=== PATIENT | female | born 1980 | race Caucasian/White ===

== ENCOUNTER 2016-08-28 12:12 | Emergency (ER) | payer OTHER ==
[2016-08-28 12:19] VITALS: BMI 21.6
[2016-08-28] MEDS ORDERED: SODIUM CHLORIDE 0.9% 1000 ML INFUS.BAG IV STA (12:24)
[2016-08-28] MEDS ORDERED: ACETAMINOPHEN 1000 MG/100 ML VIAL (NON FORMULARY) IVPB ONE (12:25)
[2016-08-28] MEDS ORDERED: ACETAMINOPHEN INJECTION 100 ML IVPB ONE (12:31)
--- NOTE | 2016-08-28 12:41 | PDOC ---
History of Present Illness - General Chief Complaint: Syncope/Near Syncope Stated Complaint: ABDOMINAL PAIN/FEVER/FAINTING/DIZZINESS Time Seen by Provider: 08/28/16 12:21 History Source: Patient Exam Limitations: No Limitations - History of Present Illness Initial Comments: 08/28/16 12:50 This is an otherwise healthy 36-year-old female who presents emergency department with a complaint of abdominal pain, fever, syncope. Patient states she was in her usual state of health until yesterday at approximately 7 PM when she noted lower abdominal pain, chills. Throughout the evening when she attempted to go to the bathroom she felt very lightheaded, dizzy, and blood syncopized. Patient has had nausea, no vomiting. Patient denies diarrhea. Patient denies recent travel. Patient states last night her temperature was 102. Patient states that her children have runny noses and a cough, otherwise has had no exposure to ill patients. Patient has had 2 C-sections, states she's had no other abdominal surgery. PT denies vaginal discharge Sexually active with only 08/28/16 13:09 MH: Denies PSH: C section x 2 Medication: Denies NKDA Social: denies alcohol drug cigarette use GENERAL/CONSTITUTIONAL: Yes: fever, chills, weakness, loss of appetite. HEAD, EYES, EARS, NOSE AND THROAT: No: change in vision, ear pain, discharge, sore throat, throat swelling. CARDIOVASCULAR: No: chest pain, lightheadedness, palpitations, syncope RESPIRATORY: No: cough, shortness of breath, wheezing, hemoptysis, stridor. GASTROINTESTINAL: Yes: nausea, abdominal pain No: vomiting, diarrhea GENITOURINARY: No: dysuria, hematuria, frequency, urgency, flank pain. MUSCULOSKELETAL: No: back pain, neck pain, joint pain, muscle swelling or pain SKIN AND BREASTS: No: lesions, pallor, rash or easy bruising. NEUROLOGIC: No: headache, vertigo, paresthesias, weakness ENDOCRINE: No: unexplained weight gain or loss HEMATOLOGIC/LYMPHATIC: No: anemia, easy bleeding, swelling nodes. Selected Entries 08/28/16 12:14 Temperature 103 F H Pulse Rate 102 H Respiratory 18 Rate Blood Pressure 86/56 O2 Sat by Pulse 100 Oximetry (%) GENERAL: The patient is in no acute distress, pt appears weak. HEAD: Normal with no signs of trauma. EYES: PERRLA, EOMI, sclera anicteric, conjunctiva clear. ENT: Ears normal, nares patent, oropharynx clear without exudates. Moist mucous membranes. NECK: Normal range of motion, supple without lymphadenopathy, JVD, or masses. LUNGS: Breath sounds equal, clear to auscultation bilaterally. No wheezes, and no crackles. HEART: Tachycardiac, Regular rhythm ABDOMEN: Soft, mild distention, diffuse lower abdominal tenderness to palpation , (+) voluntary guarding, no rebound tenderness LLQ, Suprapubic, RLQ tenderness to palpation EXTREMITIES: Normal range of motion, no edema. No clubbing or cyanosis. No erythema, or tenderness. NEUROLOGICAL: Cranial nerves II through XII grossly intact. Normal speech. No focal neurological deficits. MUSCULOSKELETAL: Back non-tender to palpation, no CVA tenderness SKIN: Warm, Dry, normal turgor, no rashes or lesions noted. 08/28/16 13:11 08/28/16 13:12 08/28/16 13:16 Past History - Past Medical History Allergies/Adverse Reactions: Allergies Allergy/AdvReac Type Severity Reaction Status Date / Time No Known Allergies Allergy Verified 08/28/16 12:15 Home Medications: Ambulatory Orders NK [No Known Home Medication] 08/28/16 Other medical history: PT DENIES - Psycho/Social/Smoking Cessation Hx Suicidal Ideation: No Smoking History: Never smoked Information on smoking cessation initiated: No *Physical Exam - Vital Signs Last Vital Signs Temp Pulse Resp BP Pulse Ox 103 F H 102 H 18 86/56 100 08/28/16 12:14 08/28/16 12:14 08/28/16 12:14 08/28/16 12:35 08/28/16 12:14 ED Treatment Course - LABORATORY CBC & Chemistry Diagram: 08/28/16 12:40 08/28/16 12:40 - Medications Given in the ED: ED Medications Discontinued Medications Generic Name Dose Route Start Last Admin Trade Name Aguila PRN Reason Stop Dose Admin Acetaminophen 1,000 mg 08/28/16 12:25 08/28/16 12:36 Ofirmev Injection - IVPB 08/28/16 12:26 1,000 mg ONCE ONE Administration Sodium Chloride 2,000 ml 08/28/16 12:24 08/28/16 12:35 Normal Saline - IV 08/28/16 12:25 2,000 ml ONCE STA Administration Medical Decision Making - Critical Care Time Total Critical Care Time (minutes): 90 Critical Care Statement: The care of this patient involved high complexity decision making to prevent further life threatening deterioration of the patient 's condition and/or to evalute & treat vital organ system(s) failure or risk of failure. - Medical Decision Making 08/28/16 13:15 Pt presents with fever and hypotension and abd pain Will do: ER sepsis protocol Will give NS boluses Will give Tylenol for fever Will send for CT of the abd and pelvis Will also do Transvaginal US Will re assess 08/28/16 13:32 Laboratory Tests 08/28/16 08/28/16 12:40 12:40 WBC 16.7 H Hgb 11.7 Hct 33.1 Plt Count 240 INR 1.60 H 08/28/16 14:05 Laboratory Tests 08/28/16 12:40 Sodium 131 L Potassium 3.1 L Chloride 103 Carbon Dioxide 20 L BUN 15 Creatinine 0.9 Random Glucose 126 H Having Transvaginal US now 08/28/16 14:52 Received call from US re: this patient's ultrasound findings Pt has a mass on the left ovary, ovary measures in total 7cm Unclear if this is neoplasm vs inflammatory process complex fluid in the cul de sac CT will be done in 30 minutes 08/28/16 16:[address] read Pt BP low Lower abdomen tender Will switch from maintainence fluids to bolus US results reviewed with patient Call placed to Radiologist re: prioritizing this CT 08/28/16 16:[address] read 08/28/16 17:09 CT unclear what mass in ovary is There is some ramón -portal edema, fluid around GB Will order RUQ US 08/28/16 17:40 There are no ICU beds at [facility] 08/28/16 18:[address] Doe Pt accepted to the ER Will ultimately go to the MICU HR: 90, BP: 92/68 08/28/16 18:05 Septic Shock *DC/Admit/Observation/Transfer Diagnosis at time of Disposition: Fever Qualifiers: Fever type: due to other condition Qualified Code(s): R50.81 - Fever presenting with conditions classified elsewhere Hypotension Qualifiers: Hypotension type: unspecified hypotension type Qualified Code(s): I95.9 - Hypotension, unspecified - Discharge Dispostion Disposition: TRANSFER ACUTE CARE/OTHER HOSP Condition at time of disposition: Fair Admit: Yes - Transfer to Acute Care Facility Receiving Facility: [facility]. Accepting Physician:: Dr Doe
[2016-08-28 12:53] LABS: MCH 31.3 pg (25.7-33.7); MCHC 35.3 g/dl (32.0-36.0); MEAN CELL VOLUME 88.6 fl (80-96); MEAN PLT VOLUME 9.2 fl (7.5-11.1); PLATELET COUNT 240 K/MM3 (134-434); RDW 13.9 % (11.6-15.6); WHITE BLOOD COUNT 16.7 K/mm3 (4.0-10.0)
[2016-08-28 13:12] LABS: ALBUMIN 4.2 g/dl (3.5-5.0); ALK PHOS 36 U/L (32-92); ANION GAP 8 (8-16); BILIRUBIN,TOTAL 0.8 mg/dl (0.2-1.0); CALCIUM 8.4 mg/dl (8.4-10.2); CO2 20 mmol/L (22-28); CREATININE 0.9 mg/dl (0.6-1.3); GLUCOSE,RANDOM 126 mg/dl (74-106); SGOT/AST 27 U/L (10-42); SGPT/ALT 13 U/L (10-40)
[2016-08-28] MEDS ORDERED: ONDANSETRON 4 MG/2 ML VIAL IVPUSH ONE (13:12)
[2016-08-28 13:16] LABS: ACTIVATED PTT 26.8 SECONDS (24.0-38.9)
[2016-08-28] MEDS ORDERED: ONDANSETRON 4 MG/2 ML VIAL ONE (13:18)
[2016-08-28 13:21] LABS: INR 1.6 (0.82-1.09); PROTHROMBIN TIME (PATIENT) 17.7 SEC (10.2-13.0)
[2016-08-28 13:35] LABS: PH,URINE 6.5 (4.5-8); URINE APPEARANCE Clear; URINE BILIRUBIN Negative (NEGATIVE); URINE GLUCOSE (UA) Negative (NEGATIVE); URINE KETONE 2+ (NEGATIVE); URINE NITRITE Negative (NEGATIVE); URINE UROBILINOGEN 0.2 E.U/dl (0.2-1.0)
[2016-08-28 13:36] LABS: URINE BLOOD 2+ (NEGATIVE); URINE COLOR YELLOW; URINE LEUK ESTERASE 1+ (NEGATIVE); URINE PROTEIN 2+ (NEGATIVE)
[2016-08-28 13:37] LABS: URINE BACTERIA MODERATE /hpf (NEGATIVE)
[2016-08-28] MEDS ORDERED: SODIUM CHLORIDE 1,000 ML IV STA ×2 (14:40→16:31)
[2016-08-28] MEDS ORDERED: KCL 10 MEQ IVPB 100 ML IVPB ONE ×2 (15:05→18:08)
[2016-08-28] MEDS: KCL 10 MEQ IVPB 100 ML IVPB SCH ×2 (15:34→18:15)
[2016-08-28] MEDS ORDERED: PIPERACILLIN/TAZOB 3.375 GM/50 ML PRE-DOCKED IVPB ONE (15:37)
--- NOTE | 2016-08-28 15:42 | EKG ---
Test Reason : Blood Pressure : / mmHG Vent. Rate : 096 BPM Atrial Rate : 096 BPM P-R Int : 180 ms QRS Dur : 100 ms QT Int : 326 ms P-R-T Axes : 049 050 -14 degrees QTc Int : 411 ms SINUS RHYTHM NONSPECIFIC ST AND T WAVE ABNORMALITY NO PREVIOUS ECGS AVAILABLE Confirmed by MINOR MEHTA MD ([id number]) on 08/28/2016 3:42:22 PM Referred By: CRISTINO GUSMAN Confirmed By:MINOR MEHTA MD
[2016-08-28] MEDS ORDERED: PIPERACILLIN/TAZOBACTAM 3.375 GM VIAL IVPB ONE (16:13)
[2016-08-28 18:19] VITALS: TEMP 99.1
[2016-08-28 19:01] VITALS: BP 92/66; PULSE 86
== END 2016-08-28 19:02 | disposition short-term general hospital (02) ==
LOC: FER 12:12
PROC: 3E033NZ Introduction of Analgesics, Hypnotics, Sedatives into Peripheral Vein, Percutaneous Approach (ICD-10-PCS; principal; 2016-08-28)
PROC: 3E033GC Introduction of Other Therapeutic Substance into Peripheral Vein, Percutaneous Approach (ICD-10-PCS; 2016-08-28)
PROC: 3E0337Z Introduction of Electrolytic and Water Balance Substance into Peripheral Vein, Percutaneous Approach (ICD-10-PCS; 2016-08-28)
DX: R50.81 Fever presenting with conditions classified elsewhere (principal); I95.9 Hypotension, unspecified
CPT/HCPCS: 36415; 71010-TC; 74177-TC; 76705-TC; 76830-TC; 80053; 81003; 81015; 83605; 84703; 85025; 85610; 85730; 86850; 86900; 86901; 87040; 87086; 87633; 87804; 93005; 99285-25

== ENCOUNTER 2017-08-03 07:27 | Emergency (ER) | payer OTHER ==
[2017-08-03 07:34] VITALS: BP 127/85; PULSE 65; TEMP 98; BMI 21.6
--- NOTE | 2017-08-03 07:36 | PDOC ---
History of Present Illness - General Chief Complaint: Injury Stated Complaint: DROPPED CUTTING BOARD ON LEFT GREAT TOE Time Seen by Provider: 08/03/17 07:29 History Source: Patient Exam Limitations: No Limitations - History of Present Illness Initial Comments: 08/03/17 07:36 Ms Anna Johnson is a 37 yo F with no significant past medical history who presents to the ER with a complaint of foot pain Pt states that last night, she dropped a wood cutting board (Approximately 5- 10 pounds) on her toe last night No lacerations Pt noted bruising this morning and a sensation of numbness PT is ambulatory with an antalgiac gait PMH: denies PSH: denies MEDS: denies ALL: NKDA SOCIAL: denies alcohol, drugs, cigarettes PMD: Review of Systems Constitutional: Fatigue, No: Anorexia, Chills/Rigor, Fever, Night Sweats, Weight Loss, Other Skin: Yes: bruising No: Pruritis, Rash Musculoskeletal: Yes: toe pain No: Arthralgias, Back Pain Neurological: Yes: numbness of toe Physical: GENERAL: The patient is in no acute distress. HEAD: Normal with no signs of trauma. EYES: PERRLA, EOMI, sclera anicteric, conjunctiva clear. NECK: Normal range of motion LUNGS: Breath sounds equal, clear to auscultation bilaterally. No wheezes, and no crackles. HEART:Regular rate and rhythm, normal S1 and S2 without murmur, rub or gallop. ABDOMEN: Soft, nontender, normoactive bowel sounds EXTREMITIES: Left great toe bruising, tenderness to palpation, nml motion at MCP , no flexion of IP joint NEUROLOGICAL: Cranial nerves II through XII grossly intact. Normal speech. No focal neurological deficits. MUSCULOSKELETAL: see above SKIN: bruising of great toe Past History - Past Medical History Allergies/Adverse Reactions: Allergies Allergy/AdvReac Type Severity Reaction Status Date / Time No Known Allergies Allergy Verified 08/03/17 07:28 Home Medications: Ambulatory Orders NK [No Known Home Medication] 08/28/16 - Suicide/Smoking/Psychosocial Hx Smoking History: Never smoked Medical Decision Making - Medical Decision Making 08/03/17 07:46 37 yo F s/p trauma to great toe Bruising suggestive of fracture Will do: X ray Pt took Motrin 400mg prior to arrival in the ER Chencho tape Hardsole shoe Discharge to home Clinical Impression *DC/Admit/Observation/Transfer Diagnosis at time of Disposition: Injury of toe on left foot Qualifiers: Encounter type: initial encounter Qualified Code(s): S99.922A - Unspecified injury of left foot, initial encounter - Discharge Dispostion Disposition: HOME Condition at time of disposition: Stable Admit: No - Referrals Referrals: Miguel Angel Judd MD [Staff Physician] - - Patient Instructions Printed Discharge Instructions: DI for Toe Sprain Additional Instructions: Anna Johnson Thank you for coming in to the ER Please apply chencho tape to your toe Wear hard soled shoe as long as it is comfortable for you Take motrin or tylenol for pain Return to the ER for any other concerns or complaints - Post Discharge Activity Forms/Work/School Notes: Back to Work
== END 2017-08-03 09:00 | disposition home or self-care (01) ==
LOC: FER 07:27
PROC: 2W3VXYZ Immobilization of Left Toe using Other Device (ICD-10-PCS; principal; 2017-08-03)
DX: S99.922A Unspecified injury of left foot, initial encounter (principal); W20.8XXA Other cause of strike by thrown, projected or falling object, initial encounter; Y93.89 Activity, other specified; Y92.9 Unspecified place or not applicable
CPT/HCPCS: 73630-TC-LT; 99281-25